=== PATIENT | female | born 1975 | race Caucasian/White ===

== ENCOUNTER → 2023-10-07 14:04 | Outpatient (REF) | payer BC, SELFPAY | LOC: HWRAD 14:04 | PROVIDERS: ATTENDING PHYSICIAN Otolaryngology Facial Plastic Surgery; FAMILY PHYSICIAN Internal Medicine | DX: J32.0 Chronic maxillary sinusitis (principal); J34.2 Deviated nasal septum | CPT/HCPCS: 70486 ==

== ENCOUNTER 2025-07-01 16:20 | Emergency (ER) | payer OTHER, SELFPAY ==
[2025-07-01 16:44] VITALS: BP 162/96
[2025-07-01 17:13] LABS: Hematocrit 38.6 % (37.0-47.0); Hemoglobin 13.9 g/dL (12.0-16.0); Mean Corp Hgb Conc. 36.0 g/dL (33.0-37.0); Mean Corpuscular Volume 91.9 fL (81.0-99.0); Nucleated Red Blood Cells % 0 %; Platelet Count 330 10^3/uL (130-400); Red Cell Dist. Width 11.9 % (11.5-14.5)
[2025-07-01 17:25] LABS: ALT (SGPT) 22 U/L (0-35); AST (SGOT) 26 U/L (14-36); Albumin 4.8 g/dl (3.5-5.0); Alkaline Phosphatase 79 U/L (38-126); Blood Urea Nitrogen 11 mg/dl (7-17); Calcium 9.6 mg/dl (8.4-10.2); Carbon Dioxide 23 mmol/L (22-30); Chloride 102 mmol/L (98-107); Glucose 126 mg/dl (70-99); Potassium 3.8 mmol/L (3.5-5.1); Sodium 133 mmol/L (135-145); Total Protein 7.5 g/dl (6.3-8.2); eGFR > 60.00
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
[2025-07-01] MEDS: LEXAPRO 10 MG PO (18:48)
== END 2025-07-01 18:57 | disposition home or self-care (01) ==
LOC: EMR 16:20
PROVIDERS: Emergency Medicine; EMERGENCY PHYSICIAN Emergency Medicine; FAMILY PHYSICIAN Internal Medicine
DX: F41.9 Anxiety disorder, unspecified (principal); F32.A Depression, unspecified; S00.11XA Contusion of right eyelid and periocular area, initial encounter; Y04.0XXA Assault by unarmed brawl or fight, initial encounter; F17.200 Nicotine dependence, unspecified, uncomplicated; Z63.8 Other specified problems related to primary support group; T43.226A Underdosing of selective serotonin reuptake inhibitors, initial encounter; Z91.148 Patient's other noncompliance with medication regimen for other reason
CPT/HCPCS: 99283; 80053; 84443; 85025